=== PATIENT | male | born 2000 | race Hispanic/Latino ===

== ENCOUNTER 2024-03-20 02:49 | Emergency (ER) | payer SELFPAY ==
[~2024-03-20] VITALS: Ht 172.7 cm; Wt 79.4 kg
[2024-03-20] MEDS ORDERED: BELLADONNA ALK/PHENOBARBITAL 5 ML UDC ONE (03:15)
[2024-03-20] MEDS ORDERED: MAGNESIUM/ALUMINUM/SIMETHICONE 30 ML UDC ONE (03:16)
[2024-03-20] MEDS ORDERED: IOPAMIDOL 370 MG/ML 100 ML INFUS..BTL INJ ONE (03:27)
[2024-03-20] MEDS: FAMOTIDINE 20 MG/2 ML VIAL IV STA (03:43)
[2024-03-20] MEDS: ONDANSETRON HCL INJ 2MG/ML 2ML 2 MG/ML VIAL IV STA (03:43)
[2024-03-20] MEDS: SODIUM CHLORIDE 0.9% 1000ML 1,000 ML IV SCH (03:43)
[2024-03-20] MEDS: KETOROLAC TROMETHAMINE 30 MG/ML VIAL IV STA (03:44)
[2024-03-20] MEDS: DONNATAL/LIDOCAINE/MAALOX 30 ML SUSP PO ONE (03:44)
[2024-03-20] MEDS ORDERED: KETOROLAC TROMETHAMINE 30 MG/ML VIAL ONE (03:45)
[2024-03-20] MEDS ORDERED: ONDANSETRON HCL INJ 2MG/ML 2ML 2 MG/ML VIAL ONE (03:45)
[2024-03-20] MEDS ORDERED: FAMOTIDINE 20 MG/2 ML VIAL IV ONE (03:45)
[2024-03-20] MEDS ORDERED: SODIUM CHLORIDE 0.9% 1000ML 1,000 ML ONE (03:45)
[2024-03-20] MEDS ORDERED: PANTOPRAZOLE SO40 MG PO (05:46)
[2024-03-20] MEDS ORDERED: ONDANSETRON ODT4 MG PO (05:47)
[2024-03-20 06:16] VITALS: BP 118/68; PULSE 76; RESP 16; TEMP 98; O2SAT 100
== END 2024-03-20 06:09 | disposition home or self-care (01) ==
LOC: FSED 02:52
DX: R10.13 Epigastric pain (principal); K52.9 Noninfective gastroenteritis and colitis, unspecified; K29.70 Gastritis, unspecified, without bleeding; M62.82 Rhabdomyolysis; R11.0 Nausea
CPT/HCPCS: 74177; 99284; J1885; J2405; J7030; Q9967